=== PATIENT | female | born 1980 | race Caucasian/White ===

== ENCOUNTER 2019-04-25 00:36 | Emergency (ER) | payer SELFPAY | END 2019-04-25 02:22 | disposition left against medical advice (07) | LOC: EMS 00:36 | DX: Z00.00 Encounter for general adult medical examination without abnormal findings (principal); Z53.21 Procedure and treatment not carried out due to patient leaving prior to being seen by health care provider ==

== ENCOUNTER 2019-04-29 07:39 | Emergency (ER) | payer SELFPAY ==
[~2019-04-29] VITALS: Ht 170.2 cm; Wt 90.9 kg
[2019-04-29] MEDS ORDERED: GLYB5 PO (07:52)
[2019-04-29] MEDS ORDERED: LEVO75 PO (07:52)
[2019-04-29 07:59] VITALS: BP 141/98
[2019-04-29 08:01] LABS: GLUCOSE,POINT OF CARE 217 MG/DL (70-110)
[2019-04-29] MEDS ORDERED: ACETAMINOPHEN 500 MG TABLET PO ONE (08:15)
[2019-04-29] MEDS ORDERED: IBUPROFEN 600 MG TABLET PO ONE (08:15)
[2019-04-29] MEDS ORDERED: AMOX TR/POT CLAV 875 MG/125 MG TABLET PO ONE (08:15)
== END 2019-04-29 08:15 | disposition home or self-care (01) ==
LOC: EMS 07:42
DX: K08.89 Other specified disorders of teeth and supporting structures (principal); E11.9 Type 2 diabetes mellitus without complications; E05.90 Thyrotoxicosis, unspecified without thyrotoxic crisis or storm; F17.210 Nicotine dependence, cigarettes, uncomplicated; Z88.8 Allergy status to other drugs, medicaments and biological substances; Z79.899 Other long term (current) drug therapy; Z79.84 Long term (current) use of oral hypoglycemic drugs
CPT/HCPCS: 99406

== ENCOUNTER 2019-12-11 02:21 | Emergency (ER) | payer SELFPAY ==
[~2019-12-11] VITALS: Ht 172.7 cm; Wt 110.0 kg
[~2019-12-11 02:21] MED LIST: GLYB5 PO; LEVO75 PO
[2019-12-11] MEDS ORDERED: METF-960 PO (02:30)
[2019-12-11 02:51] LABS: GLUCOSE,POINT OF CARE 263 MG/DL (70-110)
[2019-12-11 03:56] VITALS: BP 140/103
[2019-12-11] MEDS ORDERED: IBUPROFEN 800 MG TABLET PO ONE (04:30)
== END 2019-12-11 05:22 | disposition home or self-care (01) ==
LOC: EMS 02:22
DX: L03.116 Cellulitis of left lower limb (principal); L03.115 Cellulitis of right lower limb; E11.9 Type 2 diabetes mellitus without complications; F17.210 Nicotine dependence, cigarettes, uncomplicated; K02.7 Dental root caries
CPT/HCPCS: 85379

== ENCOUNTER 2019-12-27 10:08 | Emergency (ER) | payer MEDICAID ==
[~2019-12-27] VITALS: Ht 172.7 cm; Wt 110.0 kg
[~2019-12-27 10:08] MED LIST changes: +METF-960 PO
[2019-12-27 10:32] VITALS: BP 140/92
== END 2019-12-27 11:40 | disposition left against medical advice (07) ==
LOC: EMS 10:10
DX: E11.9 Type 2 diabetes mellitus without complications (principal); Z76.0 Encounter for issue of repeat prescription; Z53.21 Procedure and treatment not carried out due to patient leaving prior to being seen by health care provider

== ENCOUNTER 2020-03-19 05:02 | Emergency (ER) | payer SELFPAY ==
[~2020-03-19] VITALS: Ht 172.7 cm; Wt 109.1 kg
[2020-03-19 05:25] VITALS: BP 135/85
[2020-03-19] MEDS ORDERED: AMOXICILLIN TRIHYDRATE 250 MG CAPSULE PO ONE (05:30)
== END 2020-03-19 05:48 | disposition home or self-care (01) ==
LOC: EMS 05:02
DX: K04.7 Periapical abscess without sinus (principal); E05.90 Thyrotoxicosis, unspecified without thyrotoxic crisis or storm; E11.9 Type 2 diabetes mellitus without complications; F17.210 Nicotine dependence, cigarettes, uncomplicated; Z88.6 Allergy status to analgesic agent; Z79.84 Long term (current) use of oral hypoglycemic drugs; Z79.899 Other long term (current) drug therapy

== ENCOUNTER 2020-04-05 05:15 | Emergency (ER) | payer SELFPAY ==
[~2020-04-05] VITALS: Ht 170.2 cm; Wt 109.1 kg
[2020-04-05 05:22] VITALS: BP 112/81
[2020-04-05] MEDS ORDERED: ACETAMINOPHEN 325 MG TABLET PO ONE (05:45)
== END 2020-04-05 05:41 | disposition left against medical advice (07) ==
LOC: EMS 05:15
DX: J02.9 Acute pharyngitis, unspecified (principal); Z53.21 Procedure and treatment not carried out due to patient leaving prior to being seen by health care provider